=== PATIENT | male | born 1975 | race Caucasian/White ===

== ENCOUNTER 2018-05-01 08:11 | Emergency (ER) | payer OTHER ==
[~2018-05-01] VITALS: Ht 167.6 cm; Wt 72.6 kg
[2018-05-01] MEDS ORDERED: MORPHINE SULFATE 2 MG/ML SYR IV STA (08:36)
[2018-05-01] MEDS ORDERED: PROMETHAZINE 25MG/ NS 50ML (IV) IV PRN (08:45)
[2018-05-01] MEDS ORDERED: SODIUM CHLORIDE 0.9% 1000ML 1,000 ML IV SCH (08:45)
[2018-05-01] MEDS ORDERED: ACETAMINOPHEN 325 MG TAB PO ONE (09:30)
== END 2018-05-01 09:30 | disposition home or self-care (01) ==
LOC: FSED 08:11
DX: R10.84 Generalized abdominal pain (principal); R30.0 Dysuria; R11.2 Nausea with vomiting, unspecified; R19.7 Diarrhea, unspecified; F17.210 Nicotine dependence, cigarettes, uncomplicated
CPT/HCPCS: 80048; 80076; 80307; 81003; 85025; 99284; J2270; J2550

== ENCOUNTER 2020-01-15 14:12 | Emergency (ER) | payer OTHER ==
[~2020-01-15] VITALS: Ht 167.6 cm; Wt 72.6 kg
[2020-01-15] MEDS ORDERED: LIDOCAINE VISC 2% SOLN 15 ML UDC ONE (14:38)
[2020-01-15] MEDS ORDERED: PANTOPRAZOLE 40 MG 10ML VIAL ONE (14:38)
[2020-01-15] MEDS ORDERED: BELLADONNA ALK/PHENOBARBITAL 5 ML UDC ONE (14:38)
[2020-01-15] MEDS ORDERED: MAGNESIUM/ALUMINUM/SIMETHICONE 30 ML UDC ONE (14:38)
[2020-01-15] MEDS ORDERED: ONDANSETRON HCL INJ 2MG/ML 2ML 2 MG/ML VIAL ONE ×3 (14:38→16:25)
[2020-01-15] MEDS ORDERED: MORPHINE SULFATE INJ 4 MG/ML INJ 1ML ONE (14:38)
[2020-01-15] MEDS ORDERED: SODIUM CHLORIDE 0.9% 1000ML 1,000 ML ONE ×2 (14:39→14:50)
[2020-01-15] MEDS ORDERED: DONNATAL/LIDOCAINE/MAALOX 30 ML SUSP PO STA (14:42)
[2020-01-15] MEDS ORDERED: KETOROLAC TROMETHAMINE 30 MG/ML VIAL IV STA (14:42)
[2020-01-15] MEDS ORDERED: SODIUM CHLORIDE 0.9% 1000ML 1,000 ML IV STA ×2 (14:42)
[2020-01-15] MEDS ORDERED: PANTOPRAZOLE 40 MG 10ML VIAL IV STA (14:42)
[2020-01-15] MEDS ORDERED: ONDANSETRON HCL INJ 2MG/ML 2ML 2 MG/ML VIAL IV STA (14:42)
[2020-01-15] MEDS ORDERED: DICYCLOMINE HCL 20 MG/2 ML VIAL IM STA (14:42)
[2020-01-15] MEDS ORDERED: SODIUM CHLORIDE FLUSH 10 ML SYR INJ PRN (14:45)
[2020-01-15] MEDS ORDERED: DICYCLOMINE HCL 20 MG/2 ML VIAL IM ONE (14:50)
[2020-01-15] MEDS ORDERED: KETOROLAC TROMETHAMINE 30 MG/ML VIAL ONE (15:28)
--- NOTE | 2020-01-15 15:29 | NUR ---
PT IN BED ON ALL FOURS WITH PAT DR PACHECO NOTIFIED
[2020-01-15] MEDS ORDERED: LORAZEPAM INJ 2 MG/ML VIAL IV STA (16:06)
[2020-01-15] MEDS ORDERED: LORAZEPAM INJ 2 MG/ML VIAL ONE (16:25)
[2020-01-15] MEDS ORDERED: IOPAMIDOL 370 MG/ML 200 ML INFUS..BTL INJ ONE (16:30)
[2020-01-15] MEDS ORDERED: SODIUM CHLORIDE 0.9% 50ML 50 ML ONE (16:31)
--- NOTE | 2020-01-15 18:37 | Diagnostic Imaging Report ---
EXAMINATION: CT of the abdomen and pelvis with contrast. TECHNIQUE: Spiral CT images of the abdomen and pelvis were performed from the lung bases to the lesser trochanters after the intravenous administration of 100 cc of Isovue 370 and the oral administration of water. Coronal and sagittal reformatted images were obtained. COMPARISON: None. CLINICAL HISTORY:Vomiting, stomach pain since today DISCUSSION: ABDOMEN/PELVIS: LOWER THORAX:Lung bases are clear.. Small hiatal hernia. HEPATOBILIARY: No focal hepatic lesions. No intra or extrahepatic biliary ductal dilation. GALLBLADDER: No radio-opaque stones or sludge. No wall thickening. SPLEEN: No splenomegaly. PANCREAS: No focal masses or ductal dilatation. No peripancreatic inflammatory changes or fat stranding or fluid collections. ADRENALS: No adrenal nodules. KIDNEYS/URETERS: No hydronephrosis, stones, or solid enhancing lesions. 5 mm hypodense lesion in the left superior to mid aspect (series 2, image 30), which is too small to characterize but likely represents a small cyst. PELVIC ORGANS/BLADDER: Bladder is unremarkable. Prostate is enlarged, measuring 4.3 x 3.5 x 5.4 cm (estimated volume 42 mL), and contains dystrophic calcifications. PERITONEUM/RETROPERITONEUM: No free air or fluid. LYMPH NODES: No intra-abdominal, retroperitoneal, pelvic or inguinal lymphadenopathy. VESSELS: The celiac trunk,superior and inferior mesenteric and bilateral renal arteries are patent The portal, superior mesenteric and splenic veins are patent. GI TRACT: Stomach is unremarkable. No bowel dilation or evidence of obstruction. No pericolonic inflammatory changes. No significant diverticulosis. BONES AND SOFT TISSUE: Degenerative disc in the lumbosacral spine, predominantly at L5-S1. No aggressive lytic or suspicious focal sclerotic lesions. No soft tissue abnormalities. IMPRESSION: 1. No acute abdominopelvic abnormalities. No bowel dilation or evidence of obstruction. Stomach is grossly unremarkable. 2. Small hiatal hernia. 3. Prostatomegaly, which may be due to BPH. Signed by: Dr. Francis Reynaga M.D. on 01/15/2020 6:34 PM
[2020-01-15] MEDS ORDERED: MORPHINE SULFATE INJ 4 MG/ML INJ 1ML IV STA ×2 (18:53→18:58)
[2020-01-15] MEDS ORDERED: PIPER-TAZ 3.375 GM 50 ML IV STA (18:58)
[2020-01-15] MEDS ORDERED: METOCLOPRAMIDE HCL 10 MG/2ML VIAL IV ONE (19:00)
[2020-01-15] MEDS ORDERED: PIPER-TAZ 3.375 GM 50 ML ONE (19:19)
[2020-01-15] MEDS ORDERED: PREDNISONE20 MG PO (19:29)
[2020-01-15] MEDS ORDERED: CIPRO500 MG PO (19:29)
[2020-01-15] MEDS ORDERED: ONDANSETRON ODT8 MG PO (19:29)
[2020-01-15] MEDS ORDERED: PHENERGAN SUPP25 MG PR (19:29)
--- NOTE | 2020-01-15 19:29 | Emergency Department Note ---
History of Present Illnes History of Present Illness Chief Complaint: Abdominal Complaints History of Present Illness This is a 45 year old male was doing well prior to this. then 1 day ago then sweating, nausea/vomiting, then abdominal pain Historian: Patient Arrival Mode: Car History limited by: condition of the patient (normal) Evidence Technician Required: No Onset (how long ago): day(s) (1) Location: generalized Quality: n/a Radiation: Reports non-radiation Severity: moderate, severe Duration (how long): day(s) (1) Timing of current episode: constant Relieving factors: none Exacerbating factors: movement Associated symptoms: Reports malaise, Reports nausea/vomiting Treatments prior to arrival: none Past Medical/Family History Physician Review I have reviewed the patient's past medical and family history. Any updates have been documented here. Past Medical History Recent Fever: No Clinical Suspicion of Infectio: No New/Unexplained Change in Ment: No Past Medical History: Hypertension Past Surgical History: None Social History Smoking Cessation: Current some day smoker Counseling Performed: No Alcohol Use: None Any Illegal Drug Use: No TB Exposure/Symptoms: No Physically hurt or threatened: No Other Last Tetanus: UNK Any Pre-Existing Lines (PICC,: No Is patient up to date on immun: Yes Last Flu: NON Last Pneumovax: NPON Review of Systems Review of Systems Constitutional: Reports no symptoms EENTM: Reports no symptoms Cardiovascular: Reports no symptoms Respiratory: Reports no symptoms Gastrointestinal: Reports as per HPI, Reports abdominal pain, Reports nausea, Reports vomiting Genitourinary: Reports no symptoms Musculoskeletal: Reports no symptoms Integumentary: Reports no symptoms Neurological: Reports no symptoms Psychological: Reports no symptoms Endocrine: Reports no symptoms Hematological/Lymphatic: Reports no symptoms Review of other systems: All other systems negative Physical Exam Related Data Allergies: Coded Allergies: No Known Allergies (Unverified , 05/01/18) Triage Vital Signs Vital Signs Date Time Temp Pulse Resp B/P (MAP) Pulse Ox O2 Delivery O2 Flow Rate FiO2 01/15/20 14:12 97.2 108 18 114/78 99 Vital signs reviewed: Yes Physical Exam CONSTITUTIONAL Constitutional: Present well-developed, Present well-nourished, Present diaphoretic HENT HENT: Present normocephalic, Present atraumatic, Present nose normal, Present other (dry mm) HENT L/R: Present left ext ear normal, Present right ext ear normal EYES Eyes: Reports PERRL, Reports conjunctivae normal NECK Neck: Present ROM normal, Present supple PULMONARY Pulmonary: Present effort normal, Present breath sounds normal CARDIOVASCULAR Cardiovascular: Present regular rhythm, Present heart sounds normal, Present capillary refill normal, Present normal rate GASTROINTESTINAL Abdominal: Present soft, Present nontender, Present bowel sounds normal GENITOURINARY Genitourinary: Present exam deferred SKIN Skin: Present warm, Present dry MUSCULOSKELETAL Musculoskeletal: Present ROM normal NEUROLOGICAL Neurological: Present alert, Present oriented x 3, Present no gross motor or sensory deficits PSYCHOLOGICAL Psychological: Present mood/affect normal, Present judgement normal Results Laboratory Lab results reviewed: Yes (cbc/cmp/lft/ua all negative) Imaging Imaging results reviewed: Yes Impressions [place] [address] Patient Name: NASH CARVAJAL MR #: [id number] : 1975 Age/Sex: 45/M Req #: [id number] Adm Physician: Ordered by: RADHA PACHECO Report #: [id number] Location: [facility] Room/Bed: Procedure: [id number] HOPD/CT ABD/PEL WITH CONTRAST-HOPD Exam Date: 01/15/20 Exam Time: 1704 REPORT STATUS: Signed EXAMINATION: CT of the abdomen and pelvis with contrast. TECHNIQUE: Spiral CT images of the abdomen and pelvis were performed from the lung bases to the lesser trochanters after the intravenous administration of 100 cc of Isovue 370 and the oral administration of water. Coronal and sagittal reformatted images were obtained. COMPARISON: None. CLINICAL HISTORY:Vomiting, stomach pain since today DISCUSSION: ABDOMEN/PELVIS: LOWER THORAX:Lung bases are clear.. Small hiatal hernia. HEPATOBILIARY: No focal hepatic lesions. No intra or extrahepatic biliary ductal dilation. GALLBLADDER: No radio-opaque stones or sludge. No wall thickening. SPLEEN: No splenomegaly. PANCREAS: No focal masses or ductal dilatation. No peripancreatic inflammatory changes or fat stranding or fluid collections. ADRENALS: No adrenal nodules. KIDNEYS/URETERS: No hydronephrosis, stones, or solid enhancing lesions. 5 mm hypodense lesion in the left superior to mid aspect (series 2, image 30), which is too small to characterize but likely represents a small cyst. PELVIC ORGANS/BLADDER: Bladder is unremarkable. Prostate is enlarged, measuring 4.3 x 3.5 x 5.4 cm (estimated volume 42 mL), and contains dystrophic calcifications. PERITONEUM/RETROPERITONEUM: No free air or fluid. LYMPH NODES: No intra-abdominal, retroperitoneal, pelvic or inguinal lymphadenopathy. VESSELS: The celiac trunk,superior and inferior mesenteric and bilateral renal arteries are patent The portal, superior mesenteric and splenic veins are patent. GI TRACT: Stomach is unremarkable. No bowel dilation or evidence of obstruction. No pericolonic inflammatory changes. No significant diverticulosis. BONES AND SOFT TISSUE: Degenerative disc in the lumbosacral spine, predominantly at L5-S1. No aggressive lytic or suspicious focal sclerotic lesions. No soft tissue abnormalities. IMPRESSION: 1. No acute abdominopelvic abnormalities. No bowel dilation or evidence of obstruction. Stomach is grossly unremarkable. 2. Small hiatal hernia. 3. Prostatomegaly, which may be due to BPH. Signed by: Dr. Simón Albright M.D. on 01/15/2020 6:34 PM Dictated By: SIMÓN ALBRIGHT MD 33 Transcribed By: JUANITA on 01/15/201833 COPY TO: RADHA PACHECO~ Critical Care Time Total Critical Care Time (min): 120 Critical care time exclusive o: treating other patients Critcal care necessary due to: dehydration Critcal care time spent by me: evaluation patient response to tx, examination of patient, obtaining hx from patient/surrogate, order/perform tx or interventions, order/review laboratory studies, order/review radiographic studies, pulse oximetry, re-evaluation of patient condition (multiple) Assessment & Plan Medical Decision Making MDM take rxed meds below/ f/u with gi Reassessment Reassessment after multiple reassessments pt's pain id under control Assessment & Plan Final Impression: (1) Acute abdominal pain (2) Dehydration (3) Enlarged prostate (4) Hiatal hernia (5) Vomiting Depart Disposition: HOME, SELF-CARE Last Vital Signs Date Time Temp Pulse Resp B/P (MAP) Pulse Ox O2 Delivery O2 Flow Rate FiO2 01/15/20 18:59 98.2 108 18 123/78 99 Home Meds Active Scripts Prednisone (PREDNISONE) 20 Mg Tab, 80 MG PO DAILY PRN for MODERATE PAIN (4-6), #16 TAB take all 4 pills at once daily Prov:RADHA PACHECO 01/15/20 Ciprofloxacin Hcl (CIPRO) 500 Mg Tablet, 500 MG PO Q12H for 10 Days, #20 MG 0 Refills Prov:RADHA PACHECO 01/15/20 Promethazine Hcl* (PHENERGAN SUPP*) 25 Mg Supp, 50 MG WA Q6H PRN for NAUSEA AND VOMITING, #24 TAB take after zofran to control nausea and vomiting if need be Prov:RADHA PACHECO 01/15/20 Ondansetron (ONDANSETRON ODT) 8 Mg Tab.rapdis, 8 MG PO Q6H PRN for NAUSEA AND VOMITING, #20 TAB Prov:RADHA PACHECO 01/15/20 Medications in the ED Lidocaine HCl 15 ml STK-MED ONCE .ROUTE ; Start 01/15/20 at 14:38; Stop 01/15/20 at 14:34; Status DC Belladonna Alkaloids/ Phenobarbital 10 ml STK-MED ONCE .ROUTE ; Start 01/15/20 at 14:38; Stop 01/15/20 at 14:35; Status DC Ondansetron HCl 4 mg STK-MED ONCE .ROUTE ; Start 01/15/20 at 14:38; Stop 01/15/20 at 14:35; Status DC Morphine Sulfate STK-MED ONCE .ROUTE ; Start 01/15/20 at 14:38; Stop 01/15/20 at 14:35; Status DC Magnesium Aluminum Silicate 30 ml STK-MED ONCE .ROUTE ; Start 01/15/20 at 14:38; Stop 01/15/20 at 14:35; Status DC Pantoprazole Sodium 40 mg STK-MED ONCE .ROUTE ; Start 01/15/20 at 14:38; Stop 01/15/20 at 14:35; Status DC Sodium Chloride 1,000 ml @ ud STK-MED ONCE .ROUTE ; Start 01/15/20 at 14:39; Stop 01/15/20 at 14:35; Status DC Dicyclomine HCl 20 mg STK-MED ONCE IM ; Start 01/15/20 at 14:50; Stop 01/15/20 at 14:44; Status DC Sodium Chloride 1,000 ml @ ud STK-MED ONCE .ROUTE ; Start 01/15/20 at 14:50; Stop 01/15/20 at 14:44; Status DC Sodium Chloride 10 ml PRN PRN INJ IV SITE FLUSH Last administered on 01/15/20at 15:35; Admin Dose 10 ML; Start 01/15/20 at 14:45; Stop 02/14/20 at 14:44 Ondansetron HCl 8 mg NOW STAT IV Last administered on 01/15/20at 15:01; Admin Dose 8 MG; Start 01/15/20 at 14:42; Stop 01/15/20 at 15:01; Status DC Dicyclomine HCl 20 mg ONCE STAT IM Last administered on 01/15/20at 15:00; Admin Dose 20 MG; Start 01/15/20 at 14:42; Stop 01/15/20 at 15:03; Status DC Ketorolac Tromethamine 30 mg ONCE STAT IV Last administered on 01/15/20at 15:29; Admin Dose 30 MG; Start 01/15/20 at 14:42; Stop 01/15/20 at 15:02; Status DC Pantoprazole Sodium 40 mg NOW STAT IV Last administered on 01/15/20at 15:25; Admin Dose 40 MG; Start 01/15/20 at 14:42; Stop 01/15/20 at 15:01; Status DC Sodium Chloride 1,000 ml @ 1,000 mls/hr Q1H STAT IV Last administered on 01/15/20at 15:00; Admin Dose 1,000 MLS/HR; Start 01/15/20 at 14:42; Stop 01/15/20 at 15:41; Status DC Sodium Chloride 1,000 ml @ 1,000 mls/hr Q1H STAT IV Last administered on 01/15/20at 16:08; Admin Dose 1,000 MLS/HR; Start 01/15/20 at 14:42; Stop 01/15/20 at 15:41; Status DC Belladonna Alkaloids/ Phenobarbital 30 ml ONCE STAT PO Last administered on 01/15/20at 15:34; Admin Dose 30 ML; Start 01/15/20 at 14:42; Stop 01/15/20 at 15:02; Status DC Ketorolac Tromethamine 30 mg STK-MED ONCE .ROUTE ; Start 01/15/20 at 15:28; Stop 01/15/20 at 15:26; Status DC Lorazepam 2 mg ONCE STAT IV Last administered on 01/15/20at 16:28; Admin Dose 2 MG; Start 01/15/20 at 16:06; Stop 01/15/20 at 16:17; Status DC Ondansetron HCl 4 mg STK-MED ONCE .ROUTE ; Start 01/15/20 at 16:25; Stop 01/15/20 at 16:21; Status DC Ondansetron HCl 4 mg STK-MED ONCE .ROUTE ; Start 01/15/20 at 16:25; Stop 01/15/20 at 16:21; Status DC Lorazepam 2 mg STK-MED ONCE .ROUTE ; Start 01/15/20 at 16:25; Stop 01/15/20 at 16:21; Status DC Iopamidol 74,000 mg STK-MED ONCE INJ ; Start 01/15/20 at 16:30; Stop 01/15/20 at 16:25; Status DC Sodium Chloride 50 ml @ ud STK-MED ONCE .ROUTE ; Start 01/15/20 at 16:31; Stop 01/15/20 at 16:25; Status DC Morphine Sulfate 4 mg ONCE STAT IV Last administered on 01/15/20at 19:10; Admin Dose 4 MG; Start 01/15/20 at 18:53; Stop 01/15/20 at 19:13; Status DC Metoclopramide HCl 10 mg ONCE ONCE IV Last administered on 01/15/20at 19:10; Admin Dose 10 MG; Start 01/15/20 at 19:00; Stop 01/15/20 at 19:10; Status DC Morphine Sulfate 4 mg ONCE STAT IV ; Start 01/15/20 at 18:58; Stop 01/15/20 at 18:59; Status UNV Piperacillin Sod/ Tazobactam Sod 50 ml @ 100 mls/hr ONCE STAT IV ; Start 01/15/20 at 18:58; Stop 01/15/20 at 19:27 RADHA PACHECO Jan 15, 2020 19:29
[2020-01-15] MEDS ORDERED: METHYLPREDNISOLONE SOD SUCC 125 MG/2ML VIAL ONE (19:44)
[2020-01-15] MEDS ORDERED: METHYLPREDNISOLONE SOD SUCC 125 MG/2ML VIAL IV ONE (19:45)
--- NOTE | 2020-01-15 19:46 | NUR ---
PT SLEEPING AT THIS TIME, PAIN FREE. ANTIBOTICS INFUSING
[2020-01-15 20:25] VITALS: BP 111/62
== END 2020-01-15 20:26 | disposition home or self-care (01) ==
LOC: FSED 14:12
DX: R10.84 Generalized abdominal pain (principal); R11.2 Nausea with vomiting, unspecified; E86.0 Dehydration; N40.0 Benign prostatic hyperplasia without lower urinary tract symptoms; K44.9 Diaphragmatic hernia without obstruction or gangrene
CPT/HCPCS: 74177; 80053; 80076; 81003; 85025; 96374; 96375; 96376; 99284; C9113; J0500; J1885; J2060; J2270; J2405; J2543; J2765; J2930; J7030; Q9967